=== PATIENT | male | born 1960 | race Caucasian/White ===

== ENCOUNTER 2016-11-22 13:31 | Inpatient (IN) | payer MEDICARE, MEDICAID ==
[~2016-11-22] VITALS: Ht 172.7 cm; Wt 83.5 kg
[~2016-11-22 13:31] MED LIST: FERR325T40 PO; FLUD25I IM; FLUP5 PO; LITH300C3 PO; LITH600 PO; METO50 PO
[2016-11-22 14:58] VITALS: BP 130/79
[2016-11-22] MEDS ORDERED: INFLUENZA VIRUS VACCINE QVS 2016-17 (3YR+)/PF 60 MCG/0.5 ML SYRINGE IM ONE (15:30)
[2016-11-22] MEDS ORDERED: PNEUMOCOCCAL VACCINE POLYVALENT 0.5 ML VIAL [PPSV23] IM ONE (15:45)
[2016-11-22] MEDS ORDERED: HALOPERIDOL 5 MG TABLET PO PRN (15:45)
[2016-11-22] MEDS ORDERED: METOPROLOL SUCCINATE 50 MG ER TABLET PO SCH (17:00)
[2016-11-22] MEDS: FluPHENAZine HCL 5 MG TABLET PO SCH (17:21)
[2016-11-22] MEDS: BENZTROPINE MESYLATE 1 MG TABLET PO SCH (17:21)
[2016-11-22] MEDS: FERROUS SULFATE 325 MG EC TABLET PO SCH (17:22)
[2016-11-22 17:49] VITALS: BP 129/80
[2016-11-22] MEDS: LITHIUM CARBONATE 600 MG CAPSULE PO SCH (20:25)
[2016-11-22] MEDS: MIRTAZAPINE 15 MG TABLET PO SCH (20:26)
[2016-11-23 06:06] VITALS: BP 125/90
[2016-11-23] MEDS: FERROUS SULFATE 325 MG EC TABLET PO SCH ×3 (06:53→16:56)
[2016-11-23] MEDS: FluPHENAZine HCL 5 MG TABLET PO SCH ×2 (08:38→16:56)
[2016-11-23] MEDS: LITHIUM CARBONATE 300 MG CAPSULE PO SCH (08:38)
[2016-11-23] MEDS: BENZTROPINE MESYLATE 1 MG TABLET PO SCH ×2 (08:38→16:56)
[2016-11-23] MEDS: METOPROLOL TARTRATE 50 MG TABLET PO SCH ×2 (08:38→16:56)
[2016-11-23] MEDS: LORazepam 2 MG TABLET PO PRN ×2 (08:40→16:01)
[2016-11-23] MEDS: NICOTINE 21 MG/24 HOUR PATCH TD SCH (08:40)
[2016-11-23 09:12] LABS: BASOPHILS % (AUTO) 0.2 % (0.0-2.0); EOSINOPHILS % (AUTO) 1.2 % (1.0-6.0); HEMATOCRIT 37.9 % (41-53); HEMOGLOBIN 12.5 g/dL (13.5-17.5); LYMPHOCYTES # (AUTO) 0.9 K/uL (1.0-4.8); LYMPHOCYTES % (AUTO) 14.4 % (22.0-44.0); MEAN CORPUSCULAR HEMOGLOBIN 29.2 pg (26.0-34.0); MEAN CORPUSCULAR HGB CONC 32.9 G/dL (31.0-37.0); MEAN CORPUSCULAR VOLUME 89 fL (80-100); MONOCYTES # (AUTO) 0.3 K/uL (0.1-1.0); MONOCYTES % (AUTO) 4.7 % (2.0-9.0); NEUTROPHILS # (AUTO) 5.1 K/uL (1.8-7.7); NEUTROPHILS % (AUTO) 79.5 % (40.0-70.0); PLATELET COUNT (AUTO) 187 K/uL (150-450); RED BLOOD CELL COUNT(AUTO) 4.27 MIL/uL (4.50-5.90); RED CELL DISTRIBUTION WIDTH 13.6 % (11.5-14.5); WHITE BLOOD COUNT (AUTO) 6.4 K/uL (4.5-11.0)
[2016-11-23 09:27] VITALS: BP 121/84
[2016-11-23 10:33] LABS: ALANINE AMINOTRANSFERASE 21 U/L (12-78); ALBUMIN 3.2 g/dL (3.4-5.0); ANION GAP 6 mmol/L (8-16); ASPARTATE AMINOTRANSFERASE 11 U/L (15-37); BILIRUBIN,TOTAL 0.2 mg/dL (0.1-1.0); CALCIUM, TOTAL 8.8 mg/dL (8.8-10.5); CARBON DIOXIDE 30 mmol/L (22-29); CHLORIDE 103 mmol/L (98-107); CREATININE 1.14 mg/dL (0.60-1.30); GLOMERULAR FILTR. RATE CALC > 60 mL/min (>60); SODIUM SERUM 139 mmol/L (136-145); TOTAL PROTEIN, SERUM 6.4 g/dL (6.4-8.2); UREA NITROGEN, BLOOD 12 mg/dL (7-18)
[2016-11-23 16:19] VITALS: BP 136/82
[2016-11-23] MEDS: LITHIUM CARBONATE 600 MG CAPSULE PO SCH (20:43)
[2016-11-23] MEDS: MIRTAZAPINE 15 MG TABLET PO SCH (20:43)
[2016-11-24 04:48] VITALS: BP 124/82
[2016-11-24] MEDS: FERROUS SULFATE 325 MG EC TABLET PO SCH ×3 (06:38→16:09)
[2016-11-24] MEDS ORDERED: FERROUS SULFATE 325 MG EC TABLET PO SCH (07:00)
[2016-11-24 08:34] LABS: CHOL/HDL RATIO 3.2 (4.2-7.3); THYROID STIMULATING HORMONE 1.6 uIU/mL (0.36-3.74)
[2016-11-24 08:57] VITALS: BP 122/80
[2016-11-24] MEDS: BENZTROPINE MESYLATE 1 MG TABLET PO SCH ×2 (09:04→16:10)
[2016-11-24] MEDS: LITHIUM CARBONATE 300 MG CAPSULE PO SCH (09:04)
[2016-11-24] MEDS: NICOTINE 21 MG/24 HOUR PATCH TD SCH (09:04)
[2016-11-24] MEDS: METOPROLOL TARTRATE 50 MG TABLET PO SCH ×2 (09:04→16:09)
[2016-11-24] MEDS: FluPHENAZine HCL 5 MG TABLET PO SCH ×2 (09:04→16:09)
[2016-11-24] MEDS: IBUPROFEN 400 MG TABLET PO PRN (09:36)
[2016-11-24] MEDS: LORazepam 2 MG TABLET PO PRN ×2 (11:46→17:11)
[2016-11-24 16:00] VITALS: BP 136/80
[2016-11-24] MEDS: LITHIUM CARBONATE 600 MG CAPSULE PO SCH (20:24)
[2016-11-24] MEDS: MIRTAZAPINE 15 MG TABLET PO SCH (20:24)
[2016-11-25] MEDS: IBUPROFEN 400 MG TABLET PO PRN ×2 (02:55→20:37)
[2016-11-25 03:00] VITALS: BP 136/87
[2016-11-25] MEDS: FERROUS SULFATE 325 MG EC TABLET PO SCH ×3 (06:46→16:37)
[2016-11-25] MEDS: LITHIUM CARBONATE 300 MG CAPSULE PO SCH (08:26)
[2016-11-25] MEDS: NICOTINE 21 MG/24 HOUR PATCH TD SCH (08:26)
[2016-11-25] MEDS: METOPROLOL TARTRATE 50 MG TABLET PO SCH ×2 (08:27→16:37)
[2016-11-25] MEDS: FluPHENAZine HCL 5 MG TABLET PO SCH ×2 (08:27→16:37)
[2016-11-25] MEDS: BENZTROPINE MESYLATE 1 MG TABLET PO SCH ×2 (08:27→16:37)
[2016-11-25 09:06] VITALS: BP 120/66
[2016-11-25 16:00] VITALS: BP 139/80
[2016-11-25 20:37] VITALS: BP 128/84
[2016-11-25] MEDS: MIRTAZAPINE 15 MG TABLET PO SCH (20:50)
[2016-11-25] MEDS: LITHIUM CARBONATE 600 MG CAPSULE PO SCH (20:50)
[2016-11-26 00:38] VITALS: BP 116/68
[2016-11-26] MEDS: FERROUS SULFATE 325 MG EC TABLET PO SCH ×3 (06:40→16:47)
[2016-11-26 08:18] VITALS: BP 113/60
[2016-11-26] MEDS: NICOTINE 21 MG/24 HOUR PATCH TD SCH (10:33)
[2016-11-26] MEDS: LITHIUM CARBONATE 300 MG CAPSULE PO SCH (10:33)
[2016-11-26] MEDS: METOPROLOL TARTRATE 50 MG TABLET PO SCH ×2 (10:33→16:47)
[2016-11-26] MEDS: BENZTROPINE MESYLATE 1 MG TABLET PO SCH ×2 (10:33→16:47)
[2016-11-26] MEDS: FluPHENAZine HCL 5 MG TABLET PO SCH ×2 (10:33→16:47)
[2016-11-26] MEDS: IBUPROFEN 400 MG TABLET PO PRN (13:08)
[2016-11-26 16:05] VITALS: BP 126/84
[2016-11-26] MEDS: MIRTAZAPINE 15 MG TABLET PO SCH (20:36)
[2016-11-26] MEDS: LITHIUM CARBONATE 600 MG CAPSULE PO SCH (20:36)
[2016-11-26] MEDS: LORazepam 2 MG TABLET PO PRN (22:30)
[2016-11-27] VITALS: BP 124/75
[2016-11-27] MEDS: ACETAMINOPHEN 325 MG TABLET PO PRN
[2016-11-27 00:44] VITALS: BP 124/75
[2016-11-27] MEDS: FERROUS SULFATE 325 MG EC TABLET PO SCH ×3 (06:37→16:34)
[2016-11-27] MEDS: LITHIUM CARBONATE 300 MG CAPSULE PO SCH (09:11)
[2016-11-27] MEDS: FluPHENAZine HCL 5 MG TABLET PO SCH ×2 (09:11→16:34)
[2016-11-27] MEDS: BENZTROPINE MESYLATE 1 MG TABLET PO SCH ×2 (09:11→16:34)
[2016-11-27] MEDS: METOPROLOL TARTRATE 50 MG TABLET PO SCH ×2 (09:11→16:34)
[2016-11-27] MEDS: NICOTINE 21 MG/24 HOUR PATCH TD SCH (09:11)
[2016-11-27 09:14] VITALS: BP 114/70
[2016-11-27 16:13] VITALS: BP 118/82
[2016-11-27 18:00] VITALS: BP 127/85
[2016-11-27] MEDS: IBUPROFEN 400 MG TABLET PO PRN (18:03)
[2016-11-27] MEDS: LITHIUM CARBONATE 600 MG CAPSULE PO SCH (20:59)
[2016-11-27] MEDS: MIRTAZAPINE 15 MG TABLET PO SCH (20:59)
[2016-11-28 03:21] VITALS: BP 121/65
[2016-11-28] MEDS: FERROUS SULFATE 325 MG EC TABLET PO SCH ×3 (07:15→16:35)
[2016-11-28 08:13] VITALS: BP 115/69
[2016-11-28] MEDS: FluPHENAZine HCL 5 MG TABLET PO SCH ×2 (09:01→16:35)
[2016-11-28] MEDS: BENZTROPINE MESYLATE 1 MG TABLET PO SCH ×2 (09:01→16:35)
[2016-11-28] MEDS: NICOTINE 21 MG/24 HOUR PATCH TD SCH (09:01)
[2016-11-28] MEDS: METOPROLOL TARTRATE 50 MG TABLET PO SCH ×2 (09:01→16:35)
[2016-11-28] MEDS: LITHIUM CARBONATE 300 MG CAPSULE PO SCH (09:01)
[2016-11-28] MEDS: FluPHENAZine DECANOATE 25 MG/ML IM SCH (09:02)
[2016-11-28] MEDS ORDERED: TUBERCULIN, PURIFIED PROTEIN DERIVATIVE 5 TU/0.1 ML SYG ID ONE (13:30)
[2016-11-28 16:45] VITALS: BP 120/84
[2016-11-28] MEDS: LITHIUM CARBONATE 600 MG CAPSULE PO SCH (20:39)
[2016-11-28] MEDS: MIRTAZAPINE 15 MG TABLET PO SCH (20:39)
[2016-11-29 00:42] VITALS: BP 110/68
[2016-11-29] MEDS: FERROUS SULFATE 325 MG EC TABLET PO SCH ×3 (06:38→16:57)
[2016-11-29] MEDS: FluPHENAZine HCL 5 MG TABLET PO SCH ×2 (09:19→16:12)
[2016-11-29] MEDS: METOPROLOL TARTRATE 50 MG TABLET PO SCH ×2 (09:19→16:12)
[2016-11-29] MEDS: LITHIUM CARBONATE 300 MG CAPSULE PO SCH (09:19)
[2016-11-29] MEDS: BENZTROPINE MESYLATE 1 MG TABLET PO SCH ×2 (09:19→16:12)
[2016-11-29] MEDS: LORazepam 2 MG TABLET PO PRN (09:21)
[2016-11-29] MEDS: NICOTINE 21 MG/24 HOUR PATCH TD SCH (09:21)
[2016-11-29 09:33] VITALS: BP 114/72
[2016-11-29] MEDS: IBUPROFEN 400 MG TABLET PO PRN (10:37)
[2016-11-29 16:17] VITALS: BP 115/79
[2016-11-29] MEDS: LITHIUM CARBONATE 600 MG CAPSULE PO SCH (20:38)
[2016-11-29] MEDS: MIRTAZAPINE 15 MG TABLET PO SCH (20:38)
[2016-11-30 00:35] VITALS: BP 112/68
[2016-11-30] MEDS: FERROUS SULFATE 325 MG EC TABLET PO SCH ×3 (06:03→16:12)
[2016-11-30] MEDS: LITHIUM CARBONATE 300 MG CAPSULE PO SCH (08:40)
[2016-11-30] MEDS: NICOTINE 21 MG/24 HOUR PATCH TD SCH (08:40)
[2016-11-30] MEDS: FluPHENAZine HCL 5 MG TABLET PO SCH ×2 (08:40→16:12)
[2016-11-30] MEDS: METOPROLOL TARTRATE 50 MG TABLET PO SCH ×2 (08:40→16:11)
[2016-11-30] MEDS: BENZTROPINE MESYLATE 1 MG TABLET PO SCH ×2 (08:40→16:11)
[2016-11-30 08:57] VITALS: BP 137/91
[2016-11-30 16:39] VITALS: BP 111/67
[2016-11-30] MEDS: LITHIUM CARBONATE 600 MG CAPSULE PO SCH (20:01)
[2016-11-30] MEDS: MIRTAZAPINE 15 MG TABLET PO SCH (20:01)
[2016-12-01] MEDS: FERROUS SULFATE 325 MG EC TABLET PO SCH ×3 (06:24→16:39)
[2016-12-01 07:04] VITALS: BP 122/77
[2016-12-01] MEDS: BENZTROPINE MESYLATE 1 MG TABLET PO SCH ×2 (08:42→16:38)
[2016-12-01] MEDS: NICOTINE 21 MG/24 HOUR PATCH TD SCH (08:42)
[2016-12-01] MEDS: LITHIUM CARBONATE 300 MG CAPSULE PO SCH (08:42)
[2016-12-01] MEDS: FluPHENAZine HCL 5 MG TABLET PO SCH ×2 (08:42→16:38)
[2016-12-01] MEDS: METOPROLOL TARTRATE 50 MG TABLET PO SCH ×2 (08:42→16:38)
[2016-12-01 09:05] VITALS: BP 123/70
[2016-12-01 16:15] VITALS: BP 142/76
[2016-12-01] MEDS: LITHIUM CARBONATE 600 MG CAPSULE PO SCH (20:41)
[2016-12-01] MEDS: MIRTAZAPINE 15 MG TABLET PO SCH (20:41)
[2016-12-02 00:27] VITALS: BP 127/62
[2016-12-02] MEDS: FERROUS SULFATE 325 MG EC TABLET PO SCH ×3 (06:41→16:38)
[2016-12-02] MEDS: BENZTROPINE MESYLATE 1 MG TABLET PO SCH ×2 (08:43→16:38)
[2016-12-02] MEDS: NICOTINE 21 MG/24 HOUR PATCH TD SCH (08:43)
[2016-12-02] MEDS: LITHIUM CARBONATE 300 MG CAPSULE PO SCH (08:44)
[2016-12-02] MEDS: FluPHENAZine HCL 5 MG TABLET PO SCH ×2 (08:44→16:37)
[2016-12-02] MEDS: METOPROLOL TARTRATE 50 MG TABLET PO SCH ×2 (08:44→16:38)
[2016-12-02] MEDS: LORazepam 2 MG TABLET PO PRN (09:04)
[2016-12-02 09:38] VITALS: BP 121/80
[2016-12-02 12:26] VITALS: BP 130/75
[2016-12-02] MEDS: IBUPROFEN 400 MG TABLET PO PRN (12:26)
[2016-12-02 16:28] VITALS: BP 132/80
[2016-12-02] MEDS: LITHIUM CARBONATE 600 MG CAPSULE PO SCH (20:33)
[2016-12-02] MEDS: MIRTAZAPINE 15 MG TABLET PO SCH (20:33)
[2016-12-03 01:06] VITALS: BP 118/82
[2016-12-03] MEDS: FERROUS SULFATE 325 MG EC TABLET PO SCH ×3 (06:17→16:26)
[2016-12-03 08:08] VITALS: BP 109/60
[2016-12-03] MEDS: NICOTINE 21 MG/24 HOUR PATCH TD SCH (09:18)
[2016-12-03] MEDS: LITHIUM CARBONATE 300 MG CAPSULE PO SCH (09:18)
[2016-12-03] MEDS: BENZTROPINE MESYLATE 1 MG TABLET PO SCH ×2 (09:18→16:26)
[2016-12-03] MEDS: FluPHENAZine HCL 5 MG TABLET PO SCH ×2 (09:19→16:26)
[2016-12-03] MEDS: METOPROLOL TARTRATE 50 MG TABLET PO SCH ×2 (09:19→16:27)
[2016-12-03 16:07] VITALS: BP 124/83
[2016-12-03] MEDS: LITHIUM CARBONATE 600 MG CAPSULE PO SCH (20:54)
[2016-12-03] MEDS: MIRTAZAPINE 15 MG TABLET PO SCH (20:54)
[2016-12-04 00:05] VITALS: BP 103/63
[2016-12-04] MEDS: FERROUS SULFATE 325 MG EC TABLET PO SCH ×3 (06:24→16:33)
[2016-12-04 08:14] VITALS: BP 120/83
[2016-12-04] MEDS: METOPROLOL TARTRATE 50 MG TABLET PO SCH ×2 (08:22→16:33)
[2016-12-04] MEDS: FluPHENAZine HCL 5 MG TABLET PO SCH ×2 (08:22→16:33)
[2016-12-04] MEDS: LITHIUM CARBONATE 300 MG CAPSULE PO SCH (08:22)
[2016-12-04] MEDS: BENZTROPINE MESYLATE 1 MG TABLET PO SCH ×2 (08:22→16:33)
[2016-12-04] MEDS: NICOTINE 21 MG/24 HOUR PATCH TD SCH (08:36)
[2016-12-04] MEDS: LORazepam 2 MG TABLET PO PRN ×2 (08:36→13:52)
[2016-12-04 14:21] VITALS: BP 116/78
[2016-12-04] MEDS: IBUPROFEN 400 MG TABLET PO PRN (14:21)
[2016-12-04 16:08] VITALS: BP 118/70
[2016-12-04] MEDS: LITHIUM CARBONATE 600 MG CAPSULE PO SCH (20:37)
[2016-12-04] MEDS: MIRTAZAPINE 15 MG TABLET PO SCH (20:37)
[2016-12-05 06:34] VITALS: BP 120/70
[2016-12-05] MEDS: FERROUS SULFATE 325 MG EC TABLET PO SCH ×3 (06:35→16:35)
[2016-12-05 08:07] VITALS: BP 107/67
[2016-12-05] MEDS: LITHIUM CARBONATE 300 MG CAPSULE PO SCH (09:04)
[2016-12-05] MEDS: METOPROLOL TARTRATE 50 MG TABLET PO SCH ×2 (09:04→16:35)
[2016-12-05] MEDS: BENZTROPINE MESYLATE 1 MG TABLET PO SCH ×2 (09:04→16:35)
[2016-12-05] MEDS: NICOTINE 21 MG/24 HOUR PATCH TD SCH (09:04)
[2016-12-05] MEDS: FluPHENAZine HCL 5 MG TABLET PO SCH ×2 (09:04→16:35)
[2016-12-05] MEDS: LORazepam 2 MG TABLET PO PRN (14:44)
[2016-12-05 16:20] VITALS: BP 122/79
[2016-12-05] MEDS: MIRTAZAPINE 15 MG TABLET PO SCH (20:39)
[2016-12-05] MEDS: LITHIUM CARBONATE 600 MG CAPSULE PO SCH (20:39)
[2016-12-06 05:50] VITALS: BP 113/62
[2016-12-06] MEDS: FERROUS SULFATE 325 MG EC TABLET PO SCH ×3 (06:44→16:31)
[2016-12-06] MEDS: LITHIUM CARBONATE 300 MG CAPSULE PO SCH (08:05)
[2016-12-06] MEDS: METOPROLOL TARTRATE 50 MG TABLET PO SCH ×2 (08:05→16:31)
[2016-12-06] MEDS: NICOTINE 21 MG/24 HOUR PATCH TD SCH (08:05)
[2016-12-06] MEDS: BENZTROPINE MESYLATE 1 MG TABLET PO SCH ×2 (08:05→16:31)
[2016-12-06 08:06] VITALS: BP 122/72
[2016-12-06] MEDS: FluPHENAZine HCL 5 MG TABLET PO SCH ×2 (08:06→16:31)
[2016-12-06 16:06] VITALS: BP 123/76
[2016-12-06] MEDS: MIRTAZAPINE 15 MG TABLET PO SCH (20:04)
[2016-12-06] MEDS: LITHIUM CARBONATE 600 MG CAPSULE PO SCH (20:05)
[2016-12-07 06:14] VITALS: BP 105/65
[2016-12-07] MEDS: FERROUS SULFATE 325 MG EC TABLET PO SCH ×3 (06:19→16:12)
[2016-12-07 08:35] VITALS: BP 117/70
[2016-12-07] MEDS: FluPHENAZine HCL 5 MG TABLET PO SCH ×2 (09:00→16:12)
[2016-12-07] MEDS: LITHIUM CARBONATE 300 MG CAPSULE PO SCH (09:00)
[2016-12-07] MEDS: BENZTROPINE MESYLATE 1 MG TABLET PO SCH ×2 (09:00→16:12)
[2016-12-07] MEDS: METOPROLOL TARTRATE 50 MG TABLET PO SCH ×2 (09:00→16:12)
[2016-12-07] MEDS: NICOTINE 21 MG/24 HOUR PATCH TD SCH (09:01)
[2016-12-07 16:14] VITALS: BP_SYST 140
[2016-12-07] MEDS: LITHIUM CARBONATE 600 MG CAPSULE PO SCH (20:06)
[2016-12-07] MEDS: MIRTAZAPINE 15 MG TABLET PO SCH (20:06)
[2016-12-08 00:57] VITALS: BP 102/62
[2016-12-08] MEDS: FERROUS SULFATE 325 MG EC TABLET PO SCH ×3 (06:50→16:13)
[2016-12-08 08:49] VITALS: BP 121/76
[2016-12-08] MEDS: METOPROLOL TARTRATE 50 MG TABLET PO SCH ×2 (09:11→16:13)
[2016-12-08] MEDS: BENZTROPINE MESYLATE 1 MG TABLET PO SCH ×2 (09:11→16:13)
[2016-12-08] MEDS: LITHIUM CARBONATE 300 MG CAPSULE PO SCH (09:11)
[2016-12-08] MEDS: FluPHENAZine HCL 5 MG TABLET PO SCH ×2 (09:11→16:13)
[2016-12-08] MEDS: NICOTINE 21 MG/24 HOUR PATCH TD SCH (09:12)
[2016-12-08] MEDS: LORazepam 2 MG TABLET PO PRN (09:23)
[2016-12-08 10:57] VITALS: BP 118/80
[2016-12-08] MEDS: IBUPROFEN 400 MG TABLET PO PRN (10:57)
[2016-12-08 16:13] VITALS: BP 128/80
[2016-12-08] MEDS: MIRTAZAPINE 15 MG TABLET PO SCH (20:37)
[2016-12-08] MEDS: LITHIUM CARBONATE 600 MG CAPSULE PO SCH (20:37)
[2016-12-09 05:47] VITALS: BP 101/60
[2016-12-09] MEDS: FERROUS SULFATE 325 MG EC TABLET PO SCH ×3 (06:33→17:00)
[2016-12-09 08:08] VITALS: BP 108/62
[2016-12-09] MEDS: BENZTROPINE MESYLATE 1 MG TABLET PO SCH ×2 (09:10→17:49)
[2016-12-09] MEDS: METOPROLOL TARTRATE 50 MG TABLET PO SCH ×2 (09:10→17:49)
[2016-12-09] MEDS: LITHIUM CARBONATE 300 MG CAPSULE PO SCH (09:10)
[2016-12-09] MEDS: FluPHENAZine HCL 5 MG TABLET PO SCH ×2 (09:10→17:49)
[2016-12-09] MEDS: NICOTINE 21 MG/24 HOUR PATCH TD SCH (09:11)
[2016-12-09] MEDS: LORazepam 2 MG TABLET PO PRN (09:23)
[2016-12-09 09:35] VITALS: BP 112/60
[2016-12-09] MEDS: IBUPROFEN 400 MG TABLET PO PRN (09:35)
[2016-12-09 16:30] VITALS: BP 139/83
[2016-12-09] MEDS: LITHIUM CARBONATE 600 MG CAPSULE PO SCH (21:03)
[2016-12-09] MEDS: MIRTAZAPINE 15 MG TABLET PO SCH (21:03)
[2016-12-10] MEDS: FERROUS SULFATE 325 MG EC TABLET PO SCH ×3 (06:26→16:36)
[2016-12-10 06:27] VITALS: BP 104/62
[2016-12-10 08:13] VITALS: BP 104/63
[2016-12-10] MEDS: METOPROLOL TARTRATE 50 MG TABLET PO SCH ×2 (09:07→16:36)
[2016-12-10] MEDS: LITHIUM CARBONATE 300 MG CAPSULE PO SCH (09:07)
[2016-12-10] MEDS: FluPHENAZine HCL 5 MG TABLET PO SCH ×2 (09:07→16:36)
[2016-12-10] MEDS: NICOTINE 21 MG/24 HOUR PATCH TD SCH (09:07)
[2016-12-10] MEDS: BENZTROPINE MESYLATE 1 MG TABLET PO SCH ×2 (09:07→16:36)
[2016-12-10 16:09] VITALS: BP 116/74
[2016-12-10] MEDS: LITHIUM CARBONATE 600 MG CAPSULE PO SCH (20:29)
[2016-12-10] MEDS: MIRTAZAPINE 15 MG TABLET PO SCH (20:29)
[2016-12-11 00:43] VITALS: BP 107/67
[2016-12-11] MEDS: FERROUS SULFATE 325 MG EC TABLET PO SCH ×3 (06:19→16:19)
[2016-12-11 08:19] VITALS: BP 104/63
[2016-12-11] MEDS: METOPROLOL TARTRATE 50 MG TABLET PO SCH ×2 (09:00→16:19)
[2016-12-11] MEDS: FluPHENAZine HCL 5 MG TABLET PO SCH ×2 (09:25→16:19)
[2016-12-11] MEDS: BENZTROPINE MESYLATE 1 MG TABLET PO SCH ×2 (09:25→16:19)
[2016-12-11] MEDS: NICOTINE 21 MG/24 HOUR PATCH TD SCH (09:25)
[2016-12-11] MEDS: LITHIUM CARBONATE 300 MG CAPSULE PO SCH (09:25)
[2016-12-11 09:30] VITALS: BP 105/79
[2016-12-11 12:14] VITALS: BP 108/78
[2016-12-11] MEDS: IBUPROFEN 400 MG TABLET PO PRN (12:14)
[2016-12-11 16:02] VITALS: BP 135/86
[2016-12-11] MEDS: LORazepam 2 MG TABLET PO PRN (19:09)
[2016-12-11] MEDS: LITHIUM CARBONATE 600 MG CAPSULE PO SCH (20:49)
[2016-12-11] MEDS: MIRTAZAPINE 15 MG TABLET PO SCH (20:49)
[2016-12-12 00:42] VITALS: BP 101/78
[2016-12-12] MEDS: FERROUS SULFATE 325 MG EC TABLET PO SCH ×3 (06:47→16:44)
[2016-12-12 08:44] VITALS: BP 114/71
[2016-12-12] MEDS: BENZTROPINE MESYLATE 1 MG TABLET PO SCH ×2 (09:40→16:44)
[2016-12-12] MEDS: LITHIUM CARBONATE 300 MG CAPSULE PO SCH (09:40)
[2016-12-12] MEDS: NICOTINE 21 MG/24 HOUR PATCH TD SCH (09:40)
[2016-12-12] MEDS: FluPHENAZine HCL 5 MG TABLET PO SCH ×2 (09:40→16:44)
[2016-12-12] MEDS: METOPROLOL TARTRATE 50 MG TABLET PO SCH ×2 (09:41→16:44)
[2016-12-12] MEDS: FluPHENAZine DECANOATE 25 MG/ML IM SCH (13:02)
[2016-12-12 16:11] VITALS: BP 142/83
[2016-12-12] MEDS: LITHIUM CARBONATE 600 MG CAPSULE PO SCH (20:32)
[2016-12-12] MEDS: MIRTAZAPINE 15 MG TABLET PO SCH (20:32)
[2016-12-13 00:08] VITALS: BP 107/62
[2016-12-13] MEDS: FERROUS SULFATE 325 MG EC TABLET PO SCH ×3 (07:07→16:35)
[2016-12-13 08:31] VITALS: BP 126/71
[2016-12-13] MEDS: NICOTINE 21 MG/24 HOUR PATCH TD SCH (08:36)
[2016-12-13] MEDS: FluPHENAZine HCL 5 MG TABLET PO SCH ×2 (08:36→16:35)
[2016-12-13] MEDS: LITHIUM CARBONATE 300 MG CAPSULE PO SCH (08:36)
[2016-12-13] MEDS: BENZTROPINE MESYLATE 1 MG TABLET PO SCH ×2 (08:36→16:35)
[2016-12-13] MEDS: METOPROLOL TARTRATE 50 MG TABLET PO SCH ×2 (08:36→16:35)
[2016-12-13] MEDS: LORazepam 2 MG TABLET PO PRN (13:52)
[2016-12-13 16:39] VITALS: BP 124/89
[2016-12-13] MEDS: LITHIUM CARBONATE 600 MG CAPSULE PO SCH (20:42)
[2016-12-13] MEDS: MIRTAZAPINE 15 MG TABLET PO SCH (20:42)
[2016-12-14] MEDS: FERROUS SULFATE 325 MG EC TABLET PO SCH ×3 (06:04→16:19)
[2016-12-14 06:05] VITALS: BP 109/69
[2016-12-14 08:18] VITALS: BP 102/62
[2016-12-14] MEDS: FluPHENAZine HCL 5 MG TABLET PO SCH ×2 (10:14→16:19)
[2016-12-14] MEDS: LITHIUM CARBONATE 300 MG CAPSULE PO SCH (10:14)
[2016-12-14] MEDS: NICOTINE 21 MG/24 HOUR PATCH TD SCH (10:14)
[2016-12-14] MEDS: BENZTROPINE MESYLATE 1 MG TABLET PO SCH ×2 (10:14→16:19)
[2016-12-14] MEDS: METOPROLOL TARTRATE 50 MG TABLET PO SCH ×2 (10:14→16:19)
[2016-12-14 16:09] VITALS: BP 115/73
[2016-12-14 17:55] VITALS: BP 118/78
[2016-12-14] MEDS: IBUPROFEN 400 MG TABLET PO PRN (17:56)
[2016-12-14] MEDS: MIRTAZAPINE 15 MG TABLET PO SCH (20:23)
[2016-12-14] MEDS: LITHIUM CARBONATE 600 MG CAPSULE PO SCH (20:23)
[2016-12-15] MEDS: FERROUS SULFATE 325 MG EC TABLET PO SCH ×3 (06:51→16:06)
[2016-12-15 06:56] VITALS: BP 102/65
[2016-12-15 08:24] VITALS: BP 121/66
[2016-12-15] MEDS: FluPHENAZine HCL 5 MG TABLET PO SCH ×2 (09:13→16:06)
[2016-12-15] MEDS: BENZTROPINE MESYLATE 1 MG TABLET PO SCH ×2 (09:13→16:06)
[2016-12-15] MEDS: METOPROLOL TARTRATE 50 MG TABLET PO SCH ×2 (09:13→16:06)
[2016-12-15] MEDS: LITHIUM CARBONATE 300 MG CAPSULE PO SCH (09:13)
[2016-12-15] MEDS: NICOTINE 21 MG/24 HOUR PATCH TD SCH (09:13)
[2016-12-15 16:19] VITALS: BP 120/68
[2016-12-15] MEDS: MIRTAZAPINE 15 MG TABLET PO SCH (20:07)
[2016-12-15] MEDS: LITHIUM CARBONATE 600 MG CAPSULE PO SCH (20:07)
[2016-12-16 06:09] VITALS: BP 113/70
[2016-12-16] MEDS: FERROUS SULFATE 325 MG EC TABLET PO SCH ×3 (06:56→16:45)
[2016-12-16 08:32] VITALS: BP 110/72
[2016-12-16] MEDS: BENZTROPINE MESYLATE 1 MG TABLET PO SCH ×2 (08:46→16:45)
[2016-12-16] MEDS: METOPROLOL TARTRATE 50 MG TABLET PO SCH ×2 (08:46→16:45)
[2016-12-16] MEDS: FluPHENAZine HCL 5 MG TABLET PO SCH ×2 (08:46→16:45)
[2016-12-16] MEDS: NICOTINE 21 MG/24 HOUR PATCH TD SCH (08:46)
[2016-12-16] MEDS: LITHIUM CARBONATE 300 MG CAPSULE PO SCH (08:46)
[2016-12-16 16:20] VITALS: BP 127/86
[2016-12-16] MEDS: LITHIUM CARBONATE 600 MG CAPSULE PO SCH (20:41)
[2016-12-16] MEDS: MIRTAZAPINE 15 MG TABLET PO SCH (20:41)
[2016-12-17 03:28] VITALS: BP 101/62
[2016-12-17] MEDS: FERROUS SULFATE 325 MG EC TABLET PO SCH ×3 (06:38→17:05)
[2016-12-17 08:22] VITALS: BP 123/77
[2016-12-17] MEDS: LITHIUM CARBONATE 300 MG CAPSULE PO SCH (08:39)
[2016-12-17] MEDS: METOPROLOL TARTRATE 50 MG TABLET PO SCH ×2 (08:39→17:05)
[2016-12-17] MEDS: FluPHENAZine HCL 5 MG TABLET PO SCH ×2 (08:39→17:05)
[2016-12-17] MEDS: BENZTROPINE MESYLATE 1 MG TABLET PO SCH ×2 (08:39→17:05)
[2016-12-17] MEDS: NICOTINE 21 MG/24 HOUR PATCH TD SCH (08:40)
[2016-12-17 16:10] VITALS: BP 121/64
[2016-12-17] MEDS: LITHIUM CARBONATE 600 MG CAPSULE PO SCH (20:38)
[2016-12-17] MEDS: MIRTAZAPINE 15 MG TABLET PO SCH (20:38)
[2016-12-18 00:20] VITALS: BP 100/65
[2016-12-18] MEDS: FERROUS SULFATE 325 MG EC TABLET PO SCH ×3 (06:23→16:39)
[2016-12-18] MEDS: METOPROLOL TARTRATE 50 MG TABLET PO SCH ×2 (09:00→16:39)
[2016-12-18] MEDS: LITHIUM CARBONATE 300 MG CAPSULE PO SCH (09:03)
[2016-12-18] MEDS: NICOTINE 21 MG/24 HOUR PATCH TD SCH (09:04)
[2016-12-18] MEDS: FluPHENAZine HCL 5 MG TABLET PO SCH ×2 (09:04→16:39)
[2016-12-18] MEDS: BENZTROPINE MESYLATE 1 MG TABLET PO SCH ×2 (09:04→16:39)
[2016-12-18 09:05] VITALS: BP 102/63
[2016-12-18 16:12] VITALS: BP 149/88
[2016-12-18] MEDS: IBUPROFEN 400 MG TABLET PO PRN (20:02)
[2016-12-18 20:07] VITALS: BP 119/75
[2016-12-18] MEDS: LITHIUM CARBONATE 600 MG CAPSULE PO SCH (20:34)
[2016-12-18] MEDS: MIRTAZAPINE 15 MG TABLET PO SCH (20:34)
[2016-12-18] MEDS: ZOLPIDEM TARTRATE 10 MG TABLET PO PRN (22:45)
[2016-12-19 05:53] VITALS: BP 117/61
[2016-12-19] MEDS: FERROUS SULFATE 325 MG EC TABLET PO SCH ×3 (06:44→16:35)
[2016-12-19 08:35] VITALS: BP 110/65
[2016-12-19] MEDS: FluPHENAZine HCL 5 MG TABLET PO SCH ×2 (09:43→16:35)
[2016-12-19] MEDS: METOPROLOL TARTRATE 50 MG TABLET PO SCH ×2 (09:43→16:35)
[2016-12-19] MEDS: LITHIUM CARBONATE 300 MG CAPSULE PO SCH (09:43)
[2016-12-19] MEDS: NICOTINE 21 MG/24 HOUR PATCH TD SCH (09:44)
[2016-12-19] MEDS: BENZTROPINE MESYLATE 1 MG TABLET PO SCH ×2 (09:44→16:35)
[2016-12-19 12:18] VITALS: BP 116/68
[2016-12-19] MEDS: IBUPROFEN 400 MG TABLET PO PRN (12:18)
[2016-12-19 16:12] VITALS: BP 136/84
[2016-12-19] MEDS: LITHIUM CARBONATE 600 MG CAPSULE PO SCH (21:03)
[2016-12-19] MEDS: MIRTAZAPINE 15 MG TABLET PO SCH (21:03)
[2016-12-20 01:40] VITALS: BP 121/84
[2016-12-20] MEDS: LORazepam 2 MG TABLET PO PRN (01:48)
[2016-12-20] MEDS: FERROUS SULFATE 325 MG EC TABLET PO SCH ×3 (07:27→17:11)
[2016-12-20 08:35] VITALS: BP 121/78
[2016-12-20] MEDS: METOPROLOL TARTRATE 50 MG TABLET PO SCH ×2 (09:21→17:11)
[2016-12-20] MEDS: FluPHENAZine HCL 5 MG TABLET PO SCH ×2 (09:21→17:11)
[2016-12-20] MEDS: NICOTINE 21 MG/24 HOUR PATCH TD SCH (09:21)
[2016-12-20] MEDS: LITHIUM CARBONATE 300 MG CAPSULE PO SCH (09:21)
[2016-12-20] MEDS: BENZTROPINE MESYLATE 1 MG TABLET PO SCH ×2 (09:27→17:12)
[2016-12-20] MEDS: MAGNESIUM HYDROXIDE SUSPENSION 30 ML UDCUP PO PRN ×2 (11:34→12:28)
[2016-12-20 16:08] VITALS: BP 118/71
[2016-12-20] MEDS: IBUPROFEN 400 MG TABLET PO PRN (16:37)
[2016-12-20] MEDS: LITHIUM CARBONATE 600 MG CAPSULE PO SCH (20:17)
[2016-12-20] MEDS: MIRTAZAPINE 15 MG TABLET PO SCH (20:17)
[2016-12-21 06:58] VITALS: BP 116/70
[2016-12-21] MEDS: FERROUS SULFATE 325 MG EC TABLET PO SCH ×3 (07:00→16:13)
[2016-12-21 08:05] VITALS: BP 108/77
[2016-12-21] MEDS: LITHIUM CARBONATE 300 MG CAPSULE PO SCH (08:39)
[2016-12-21] MEDS: FluPHENAZine HCL 5 MG TABLET PO SCH ×2 (08:39→16:13)
[2016-12-21] MEDS: METOPROLOL TARTRATE 50 MG TABLET PO SCH ×2 (08:39→16:13)
[2016-12-21] MEDS: BENZTROPINE MESYLATE 1 MG TABLET PO SCH ×2 (08:40→16:13)
[2016-12-21] MEDS: NICOTINE 21 MG/24 HOUR PATCH TD SCH (08:40)
[2016-12-21 16:13] VITALS: BP 120/67
[2016-12-21] MEDS: MIRTAZAPINE 15 MG TABLET PO SCH (20:09)
[2016-12-21] MEDS: LITHIUM CARBONATE 600 MG CAPSULE PO SCH (20:09)
[2016-12-22 00:07] VITALS: BP 104/66
[2016-12-22] MEDS: FERROUS SULFATE 325 MG EC TABLET PO SCH ×3 (06:51→16:38)
[2016-12-22 08:10] VITALS: BP 117/76
[2016-12-22] MEDS: FluPHENAZine HCL 5 MG TABLET PO SCH ×2 (09:23→16:38)
[2016-12-22] MEDS: METOPROLOL TARTRATE 50 MG TABLET PO SCH ×2 (09:23→16:38)
[2016-12-22] MEDS: NICOTINE 21 MG/24 HOUR PATCH TD SCH (09:23)
[2016-12-22] MEDS: BENZTROPINE MESYLATE 1 MG TABLET PO SCH ×2 (09:23→16:38)
[2016-12-22] MEDS: LITHIUM CARBONATE 300 MG CAPSULE PO SCH (09:23)
[2016-12-22] MEDS: MAGNESIUM HYDROXIDE SUSPENSION 30 ML UDCUP PO PRN (12:16)
[2016-12-22 16:08] VITALS: BP 119/74
[2016-12-22] MEDS: LITHIUM CARBONATE 600 MG CAPSULE PO SCH (20:33)
[2016-12-22] MEDS: MIRTAZAPINE 15 MG TABLET PO SCH (20:33)
[2016-12-23] VITALS: BP 102/69
[2016-12-23] MEDS: IBUPROFEN 400 MG TABLET PO PRN (06:05)
[2016-12-23] MEDS: FERROUS SULFATE 325 MG EC TABLET PO SCH ×3 (06:05→16:42)
[2016-12-23 08:02] VITALS: BP 106/70
[2016-12-23] MEDS: NICOTINE 21 MG/24 HOUR PATCH TD SCH (09:00)
[2016-12-23] MEDS: FluPHENAZine HCL 5 MG TABLET PO SCH ×2 (09:20→16:42)
[2016-12-23] MEDS: BENZTROPINE MESYLATE 1 MG TABLET PO SCH ×2 (09:20→16:42)
[2016-12-23] MEDS: METOPROLOL TARTRATE 50 MG TABLET PO SCH ×2 (09:20→16:42)
[2016-12-23] MEDS: LITHIUM CARBONATE 300 MG CAPSULE PO SCH (09:20)
[2016-12-23 16:13] VITALS: BP 138/81
[2016-12-23] MEDS: LITHIUM CARBONATE 600 MG CAPSULE PO SCH (20:40)
[2016-12-23] MEDS: MIRTAZAPINE 15 MG TABLET PO SCH (20:40)
[2016-12-24 00:30] VITALS: BP 107/73
[2016-12-24] MEDS: FERROUS SULFATE 325 MG EC TABLET PO SCH ×3 (06:47→16:37)
[2016-12-24 08:26] VITALS: BP 121/58
[2016-12-24] MEDS: LITHIUM CARBONATE 300 MG CAPSULE PO SCH (09:19)
[2016-12-24] MEDS: BENZTROPINE MESYLATE 1 MG TABLET PO SCH ×2 (09:20→16:37)
[2016-12-24] MEDS: NICOTINE 21 MG/24 HOUR PATCH TD SCH (09:20)
[2016-12-24] MEDS: FluPHENAZine HCL 5 MG TABLET PO SCH ×2 (09:20→16:37)
[2016-12-24] MEDS: METOPROLOL TARTRATE 50 MG TABLET PO SCH ×2 (09:20→16:37)
[2016-12-24 10:46] VITALS: BP 123/60
[2016-12-24] MEDS: ACETAMINOPHEN 325 MG TABLET PO PRN (10:48)
[2016-12-24 16:50] VITALS: BP 122/74
[2016-12-24 18:45] VITALS: BP 119/68
[2016-12-24] MEDS: IBUPROFEN 400 MG TABLET PO PRN (18:45)
[2016-12-24] MEDS: LITHIUM CARBONATE 600 MG CAPSULE PO SCH (20:39)
[2016-12-24] MEDS: MIRTAZAPINE 15 MG TABLET PO SCH (20:40)
[2016-12-25 04:57] VITALS: BP 121/73
[2016-12-25] MEDS: FERROUS SULFATE 325 MG EC TABLET PO SCH ×3 (06:57→16:36)
[2016-12-25] MEDS: FluPHENAZine HCL 5 MG TABLET PO SCH ×2 (08:16→16:36)
[2016-12-25] MEDS: METOPROLOL TARTRATE 50 MG TABLET PO SCH ×2 (08:16→16:36)
[2016-12-25] MEDS: LITHIUM CARBONATE 300 MG CAPSULE PO SCH (08:16)
[2016-12-25] MEDS: BENZTROPINE MESYLATE 1 MG TABLET PO SCH ×2 (08:16→16:36)
[2016-12-25] MEDS: NICOTINE 21 MG/24 HOUR PATCH TD SCH (08:18)
[2016-12-25 08:28] VITALS: BP 126/96
[2016-12-25] MEDS: MAGNESIUM HYDROXIDE SUSPENSION 30 ML UDCUP PO PRN (09:04)
[2016-12-25 10:00] VITALS: BP 118/69
[2016-12-25 16:00] VITALS: BP 125/72
[2016-12-25] MEDS: MIRTAZAPINE 15 MG TABLET PO SCH (20:37)
[2016-12-25] MEDS: LITHIUM CARBONATE 600 MG CAPSULE PO SCH (20:37)
[2016-12-26 02:45] VITALS: BP 111/79
[2016-12-26] MEDS: FERROUS SULFATE 325 MG EC TABLET PO SCH ×3 (06:24→16:39)
[2016-12-26 08:17] VITALS: BP 122/80
[2016-12-26] MEDS: LITHIUM CARBONATE 300 MG CAPSULE PO SCH (09:11)
[2016-12-26] MEDS: NICOTINE 21 MG/24 HOUR PATCH TD SCH (09:11)
[2016-12-26] MEDS: FluPHENAZine HCL 5 MG TABLET PO SCH ×2 (09:11→16:39)
[2016-12-26] MEDS: BENZTROPINE MESYLATE 1 MG TABLET PO SCH ×2 (09:11→16:39)
[2016-12-26] MEDS: METOPROLOL TARTRATE 50 MG TABLET PO SCH ×2 (09:11→16:39)
[2016-12-26] MEDS: FluPHENAZine DECANOATE 25 MG/ML IM SCH (09:53)
[2016-12-26 16:11] VITALS: BP 144/79
[2016-12-26] MEDS: LITHIUM CARBONATE 600 MG CAPSULE PO SCH (20:37)
[2016-12-26] MEDS: MIRTAZAPINE 15 MG TABLET PO SCH (20:37)
[2016-12-27 00:32] VITALS: BP 101/64
[2016-12-27] MEDS: FERROUS SULFATE 325 MG EC TABLET PO SCH ×3 (06:10→16:35)
[2016-12-27 08:06] VITALS: BP 113/68
[2016-12-27] MEDS: NICOTINE 21 MG/24 HOUR PATCH TD SCH (09:14)
[2016-12-27] MEDS: BENZTROPINE MESYLATE 1 MG TABLET PO SCH ×2 (09:14→16:34)
[2016-12-27] MEDS: METOPROLOL TARTRATE 50 MG TABLET PO SCH ×2 (09:14→16:35)
[2016-12-27] MEDS: FluPHENAZine HCL 5 MG TABLET PO SCH ×2 (09:14→16:34)
[2016-12-27] MEDS: LITHIUM CARBONATE 300 MG CAPSULE PO SCH (09:14)
[2016-12-27 16:08] VITALS: BP 124/80
[2016-12-27] MEDS: LITHIUM CARBONATE 600 MG CAPSULE PO SCH (20:34)
[2016-12-27] MEDS: MIRTAZAPINE 15 MG TABLET PO SCH (20:34)
[2016-12-28 00:36] VITALS: BP 109/64
[2016-12-28] MEDS: FERROUS SULFATE 325 MG EC TABLET PO SCH ×3 (06:45→16:59)
[2016-12-28 08:08] VITALS: BP 106/65
[2016-12-28] MEDS: FluPHENAZine HCL 5 MG TABLET PO SCH ×2 (10:17→16:07)
[2016-12-28] MEDS: LITHIUM CARBONATE 300 MG CAPSULE PO SCH (10:18)
[2016-12-28] MEDS: METOPROLOL TARTRATE 50 MG TABLET PO SCH ×2 (10:18→16:07)
[2016-12-28] MEDS: NICOTINE 21 MG/24 HOUR PATCH TD SCH (10:18)
[2016-12-28] MEDS: BENZTROPINE MESYLATE 1 MG TABLET PO SCH ×2 (10:18→16:07)
[2016-12-28 16:08] VITALS: BP 122/81
[2016-12-28] MEDS: MIRTAZAPINE 15 MG TABLET PO SCH (20:07)
[2016-12-28] MEDS: LITHIUM CARBONATE 600 MG CAPSULE PO SCH (20:07)
[2016-12-29 04:20] VITALS: BP 123/71
[2016-12-29] MEDS: FERROUS SULFATE 325 MG EC TABLET PO SCH ×3 (06:36→17:11)
[2016-12-29] MEDS: METOPROLOL TARTRATE 50 MG TABLET PO SCH ×2 (08:26→17:11)
[2016-12-29] MEDS: FluPHENAZine HCL 5 MG TABLET PO SCH ×2 (08:26→17:11)
[2016-12-29] MEDS: BENZTROPINE MESYLATE 1 MG TABLET PO SCH ×2 (08:26→17:11)
[2016-12-29] MEDS: LITHIUM CARBONATE 300 MG CAPSULE PO SCH (08:26)
[2016-12-29] MEDS: NICOTINE 21 MG/24 HOUR PATCH TD SCH (08:26)
[2016-12-29 08:33] VITALS: BP 126/86
[2016-12-29 16:12] VITALS: BP 125/85
[2016-12-29] MEDS: LITHIUM CARBONATE 600 MG CAPSULE PO SCH (20:11)
[2016-12-29] MEDS: MIRTAZAPINE 15 MG TABLET PO SCH (20:11)
[2016-12-29] MEDS: ZOLPIDEM TARTRATE 10 MG TABLET PO PRN (20:46)
[2016-12-30 06:30] VITALS: BP 112/79
[2016-12-30] MEDS: FERROUS SULFATE 325 MG EC TABLET PO SCH ×3 (06:37→16:34)
[2016-12-30] MEDS: BENZTROPINE MESYLATE 1 MG TABLET PO SCH ×2 (08:05→16:34)
[2016-12-30] MEDS: FluPHENAZine HCL 5 MG TABLET PO SCH ×2 (08:05→16:34)
[2016-12-30] MEDS: LITHIUM CARBONATE 300 MG CAPSULE PO SCH (08:05)
[2016-12-30] MEDS: NICOTINE 21 MG/24 HOUR PATCH TD SCH (08:05)
[2016-12-30] MEDS: METOPROLOL TARTRATE 50 MG TABLET PO SCH ×2 (08:06→16:34)
[2016-12-30 08:27] VITALS: BP 119/85
[2016-12-30 16:00] VITALS: BP 140/90
[2016-12-30] MEDS: MIRTAZAPINE 15 MG TABLET PO SCH (20:36)
[2016-12-30] MEDS: LITHIUM CARBONATE 600 MG CAPSULE PO SCH (20:36)
[2016-12-31 01:18] VITALS: BP 110/60
[2016-12-31] MEDS: FERROUS SULFATE 325 MG EC TABLET PO SCH ×3 (07:06→16:36)
[2016-12-31 08:36] VITALS: BP 115/72
[2016-12-31] MEDS: BENZTROPINE MESYLATE 1 MG TABLET PO SCH ×2 (09:06→16:36)
[2016-12-31] MEDS: FluPHENAZine HCL 5 MG TABLET PO SCH ×2 (09:06→16:36)
[2016-12-31] MEDS: NICOTINE 21 MG/24 HOUR PATCH TD SCH (09:06)
[2016-12-31] MEDS: LITHIUM CARBONATE 300 MG CAPSULE PO SCH (09:07)
[2016-12-31] MEDS: METOPROLOL TARTRATE 50 MG TABLET PO SCH ×2 (09:07→16:36)
[2016-12-31 16:19] VITALS: BP 117/98
[2016-12-31] MEDS: LITHIUM CARBONATE 600 MG CAPSULE PO SCH (20:39)
[2016-12-31] MEDS: MIRTAZAPINE 15 MG TABLET PO SCH (20:39)
[2017-01-01 01:16] VITALS: BP 106/70
[2017-01-01] MEDS: FERROUS SULFATE 325 MG EC TABLET PO SCH ×3 (06:41→18:01)
[2017-01-01 08:10] VITALS: BP 114/66
[2017-01-01] MEDS: BENZTROPINE MESYLATE 1 MG TABLET PO SCH ×2 (08:18→18:01)
[2017-01-01] MEDS: FluPHENAZine HCL 5 MG TABLET PO SCH ×2 (08:18→18:01)
[2017-01-01] MEDS: NICOTINE 21 MG/24 HOUR PATCH TD SCH (08:18)
[2017-01-01] MEDS: METOPROLOL TARTRATE 50 MG TABLET PO SCH ×2 (08:19→18:01)
[2017-01-01] MEDS: LITHIUM CARBONATE 300 MG CAPSULE PO SCH (08:21)
[2017-01-01 16:30] VITALS: BP 118/65
[2017-01-01] MEDS: LITHIUM CARBONATE 600 MG CAPSULE PO SCH (20:37)
[2017-01-01] MEDS: MIRTAZAPINE 15 MG TABLET PO SCH (20:37)
[2017-01-02 00:01] VITALS: BP 108/73
[2017-01-02] MEDS: FERROUS SULFATE 325 MG EC TABLET PO SCH ×3 (07:04→16:37)
[2017-01-02] MEDS: BENZTROPINE MESYLATE 1 MG TABLET PO SCH ×2 (08:20→16:37)
[2017-01-02] MEDS: METOPROLOL TARTRATE 50 MG TABLET PO SCH ×2 (08:20→16:37)
[2017-01-02] MEDS: FluPHENAZine HCL 5 MG TABLET PO SCH ×2 (08:20→16:37)
[2017-01-02] MEDS: LITHIUM CARBONATE 300 MG CAPSULE PO SCH (08:20)
[2017-01-02] MEDS: NICOTINE 21 MG/24 HOUR PATCH TD SCH (08:24)
[2017-01-02 09:04] VITALS: BP 121/76
[2017-01-02 16:08] VITALS: BP 130/80
[2017-01-02] MEDS: MIRTAZAPINE 15 MG TABLET PO SCH (20:41)
[2017-01-02] MEDS: LITHIUM CARBONATE 600 MG CAPSULE PO SCH (20:43)
[2017-01-03] MEDS: FERROUS SULFATE 325 MG EC TABLET PO SCH ×3 (06:44→17:07)
[2017-01-03 06:52] VITALS: BP 130/87
[2017-01-03 09:06] VITALS: BP 119/74
[2017-01-03] MEDS: LITHIUM CARBONATE 300 MG CAPSULE PO SCH (09:28)
[2017-01-03] MEDS: FluPHENAZine HCL 5 MG TABLET PO SCH ×2 (09:28→17:06)
[2017-01-03] MEDS: METOPROLOL TARTRATE 50 MG TABLET PO SCH ×2 (09:28→17:07)
[2017-01-03] MEDS: BENZTROPINE MESYLATE 1 MG TABLET PO SCH ×2 (09:29→17:07)
[2017-01-03] MEDS: NICOTINE 21 MG/24 HOUR PATCH TD SCH (09:29)
[2017-01-03 16:22] VITALS: BP 119/69
[2017-01-03] MEDS: MIRTAZAPINE 15 MG TABLET PO SCH (20:17)
[2017-01-03] MEDS: LITHIUM CARBONATE 600 MG CAPSULE PO SCH (20:17)
[2017-01-04 02:08] VITALS: BP 122/66
[2017-01-04] MEDS: FERROUS SULFATE 325 MG EC TABLET PO SCH ×3 (06:25→17:02)
[2017-01-04 08:40] VITALS: BP 120/88
[2017-01-04] MEDS: FluPHENAZine HCL 5 MG TABLET PO SCH ×2 (09:37→17:01)
[2017-01-04] MEDS: BENZTROPINE MESYLATE 1 MG TABLET PO SCH ×2 (09:37→17:01)
[2017-01-04] MEDS: METOPROLOL TARTRATE 50 MG TABLET PO SCH ×2 (09:37→17:01)
[2017-01-04] MEDS: LITHIUM CARBONATE 300 MG CAPSULE PO SCH (09:37)
[2017-01-04] MEDS: NICOTINE 21 MG/24 HOUR PATCH TD SCH (09:38)
[2017-01-04 16:10] VITALS: BP 113/74
[2017-01-04] MEDS: LITHIUM CARBONATE 600 MG CAPSULE PO SCH (20:19)
[2017-01-04] MEDS: MIRTAZAPINE 15 MG TABLET PO SCH (20:19)
[2017-01-05 00:59] VITALS: BP 102/67
[2017-01-05] MEDS: FERROUS SULFATE 325 MG EC TABLET PO SCH ×3 (06:46→16:04)
[2017-01-05 08:25] VITALS: BP 112/68
[2017-01-05] MEDS: NICOTINE 21 MG/24 HOUR PATCH TD SCH (08:27)
[2017-01-05] MEDS: FluPHENAZine HCL 5 MG TABLET PO SCH ×2 (08:27→16:05)
[2017-01-05] MEDS: METOPROLOL TARTRATE 50 MG TABLET PO SCH ×2 (08:27→16:04)
[2017-01-05] MEDS: BENZTROPINE MESYLATE 1 MG TABLET PO SCH ×2 (08:27→16:04)
[2017-01-05] MEDS: LITHIUM CARBONATE 300 MG CAPSULE PO SCH (08:27)
[2017-01-05 16:10] VITALS: BP 112/66
[2017-01-05] MEDS: MIRTAZAPINE 15 MG TABLET PO SCH (20:14)
[2017-01-05] MEDS: LITHIUM CARBONATE 600 MG CAPSULE PO SCH (20:15)
[2017-01-06 00:31] VITALS: BP 104/63
[2017-01-06] MEDS: FERROUS SULFATE 325 MG EC TABLET PO SCH ×3 (06:34→16:40)
[2017-01-06 08:09] VITALS: BP 112/70
[2017-01-06] MEDS: NICOTINE 21 MG/24 HOUR PATCH TD SCH (09:32)
[2017-01-06] MEDS: METOPROLOL TARTRATE 50 MG TABLET PO SCH ×2 (09:32→16:40)
[2017-01-06] MEDS: BENZTROPINE MESYLATE 1 MG TABLET PO SCH ×2 (09:32→16:40)
[2017-01-06] MEDS: LITHIUM CARBONATE 300 MG CAPSULE PO SCH (09:32)
[2017-01-06] MEDS: FluPHENAZine HCL 5 MG TABLET PO SCH ×2 (09:32→16:40)
[2017-01-06 16:15] VITALS: BP 136/88
[2017-01-06] MEDS: LITHIUM CARBONATE 600 MG CAPSULE PO SCH (20:35)
[2017-01-06] MEDS: MIRTAZAPINE 15 MG TABLET PO SCH (20:36)
[2017-01-07 00:41] VITALS: BP 113/73
[2017-01-07] MEDS: FERROUS SULFATE 325 MG EC TABLET PO SCH ×3 (07:10→16:33)
[2017-01-07 08:28] VITALS: BP 104/62
[2017-01-07] MEDS: NICOTINE 21 MG/24 HOUR PATCH TD SCH (09:53)
[2017-01-07] MEDS: BENZTROPINE MESYLATE 1 MG TABLET PO SCH ×2 (09:53→16:33)
[2017-01-07] MEDS: FluPHENAZine HCL 5 MG TABLET PO SCH ×2 (09:53→16:33)
[2017-01-07] MEDS: METOPROLOL TARTRATE 50 MG TABLET PO SCH ×2 (09:53→16:33)
[2017-01-07] MEDS: LITHIUM CARBONATE 300 MG CAPSULE PO SCH (09:53)
[2017-01-07 16:18] VITALS: BP 120/85
[2017-01-07] MEDS: LITHIUM CARBONATE 600 MG CAPSULE PO SCH (20:37)
[2017-01-07] MEDS: MIRTAZAPINE 15 MG TABLET PO SCH (20:37)
[2017-01-08 06:27] VITALS: BP 104/69
[2017-01-08] MEDS: FERROUS SULFATE 325 MG EC TABLET PO SCH ×3 (06:43→16:44)
[2017-01-08 08:14] VITALS: BP 108/72
[2017-01-08] MEDS: LITHIUM CARBONATE 300 MG CAPSULE PO SCH (09:37)
[2017-01-08] MEDS: BENZTROPINE MESYLATE 1 MG TABLET PO SCH ×2 (09:37→16:44)
[2017-01-08] MEDS: FluPHENAZine HCL 5 MG TABLET PO SCH ×2 (09:37→16:44)
[2017-01-08] MEDS: NICOTINE 21 MG/24 HOUR PATCH TD SCH (09:37)
[2017-01-08 09:44] VITALS: BP 135/75
[2017-01-08] MEDS: METOPROLOL TARTRATE 50 MG TABLET PO SCH ×2 (09:44→16:44)
[2017-01-08 16:19] VITALS: BP 125/86
[2017-01-08] MEDS: LITHIUM CARBONATE 600 MG CAPSULE PO SCH (20:36)
[2017-01-08] MEDS: MIRTAZAPINE 15 MG TABLET PO SCH (20:36)
[2017-01-09 00:48] VITALS: BP 110/77
[2017-01-09] MEDS: FERROUS SULFATE 325 MG EC TABLET PO SCH ×3 (07:12→17:12)
[2017-01-09 08:14] VITALS: BP 107/70
[2017-01-09 09:30] VITALS: BP 118/70
[2017-01-09] MEDS: METOPROLOL TARTRATE 50 MG TABLET PO SCH ×2 (09:30→17:11)
[2017-01-09] MEDS: FluPHENAZine HCL 5 MG TABLET PO SCH ×2 (09:30→17:12)
[2017-01-09] MEDS: LITHIUM CARBONATE 300 MG CAPSULE PO SCH (09:30)
[2017-01-09] MEDS: NICOTINE 21 MG/24 HOUR PATCH TD SCH (09:30)
[2017-01-09] MEDS: BENZTROPINE MESYLATE 1 MG TABLET PO SCH ×2 (09:30→17:12)
[2017-01-09] MEDS: FluPHENAZine DECANOATE 25 MG/ML IM SCH (16:16)
[2017-01-09 16:22] VITALS: BP 131/83
[2017-01-09] MEDS: MAGNESIUM HYDROXIDE SUSPENSION 30 ML UDCUP PO PRN (16:50)
[2017-01-09] MEDS: LITHIUM CARBONATE 600 MG CAPSULE PO SCH (20:46)
[2017-01-09] MEDS: MIRTAZAPINE 15 MG TABLET PO SCH (20:47)
[2017-01-10 05:50] VITALS: BP 110/69
[2017-01-10] MEDS: FERROUS SULFATE 325 MG EC TABLET PO SCH ×3 (06:16→16:37)
[2017-01-10 08:15] VITALS: BP 113/79
[2017-01-10] MEDS: BENZTROPINE MESYLATE 1 MG TABLET PO SCH ×2 (08:45→16:37)
[2017-01-10] MEDS: NICOTINE 21 MG/24 HOUR PATCH TD SCH (08:45)
[2017-01-10] MEDS: FluPHENAZine HCL 5 MG TABLET PO SCH ×2 (08:45→16:37)
[2017-01-10] MEDS: LITHIUM CARBONATE 300 MG CAPSULE PO SCH (08:45)
[2017-01-10] MEDS: METOPROLOL TARTRATE 50 MG TABLET PO SCH ×2 (08:45→16:37)
[2017-01-10 16:10] VITALS: BP 138/82
[2017-01-10] MEDS: MIRTAZAPINE 15 MG TABLET PO SCH (20:35)
[2017-01-10] MEDS: LITHIUM CARBONATE 600 MG CAPSULE PO SCH (20:35)
[2017-01-11 06:11] VITALS: BP 118/65
[2017-01-11] MEDS: FERROUS SULFATE 325 MG EC TABLET PO SCH ×3 (06:36→16:11)
[2017-01-11 08:00] VITALS: BP 106/64
[2017-01-11] MEDS: LITHIUM CARBONATE 300 MG CAPSULE PO SCH (09:42)
[2017-01-11] MEDS: NICOTINE 21 MG/24 HOUR PATCH TD SCH (09:42)
[2017-01-11] MEDS: BENZTROPINE MESYLATE 1 MG TABLET PO SCH ×2 (09:42→16:11)
[2017-01-11] MEDS: FluPHENAZine HCL 5 MG TABLET PO SCH ×2 (09:42→16:11)
[2017-01-11 09:45] VITALS: BP 117/66
[2017-01-11] MEDS: METOPROLOL TARTRATE 50 MG TABLET PO SCH ×2 (09:49→16:11)
[2017-01-11 16:12] VITALS: BP 122/72
[2017-01-11] MEDS: MIRTAZAPINE 15 MG TABLET PO SCH (20:23)
[2017-01-11] MEDS: LITHIUM CARBONATE 600 MG CAPSULE PO SCH (20:23)
[2017-01-12 06:04] VITALS: BP 108/67
[2017-01-12] MEDS: FERROUS SULFATE 325 MG EC TABLET PO SCH ×3 (06:08→16:36)
[2017-01-12 08:36] VITALS: BP 115/73
[2017-01-12] MEDS: METOPROLOL TARTRATE 50 MG TABLET PO SCH ×2 (08:53→16:36)
[2017-01-12] MEDS: FluPHENAZine HCL 5 MG TABLET PO SCH ×2 (08:53→16:35)
[2017-01-12] MEDS: LITHIUM CARBONATE 300 MG CAPSULE PO SCH (08:53)
[2017-01-12] MEDS: BENZTROPINE MESYLATE 1 MG TABLET PO SCH ×2 (08:53→16:35)
[2017-01-12] MEDS: NICOTINE 21 MG/24 HOUR PATCH TD SCH (08:54)
[2017-01-12 16:14] VITALS: BP 127/77
[2017-01-12] MEDS: MIRTAZAPINE 15 MG TABLET PO SCH (20:19)
[2017-01-12] MEDS: LITHIUM CARBONATE 600 MG CAPSULE PO SCH (20:19)
[2017-01-13 06:13] VITALS: BP 115/69
[2017-01-13] MEDS: FERROUS SULFATE 325 MG EC TABLET PO SCH ×3 (06:37→17:13)
[2017-01-13 08:14] VITALS: BP 106/63
[2017-01-13] MEDS: BENZTROPINE MESYLATE 1 MG TABLET PO SCH ×2 (08:54→17:13)
[2017-01-13] MEDS: LITHIUM CARBONATE 300 MG CAPSULE PO SCH (08:54)
[2017-01-13] MEDS: FluPHENAZine HCL 5 MG TABLET PO SCH ×2 (08:54→17:13)
[2017-01-13] MEDS: NICOTINE 21 MG/24 HOUR PATCH TD SCH (08:54)
[2017-01-13 09:35] VITALS: BP 114/76
[2017-01-13] MEDS: METOPROLOL TARTRATE 50 MG TABLET PO SCH ×2 (09:37→17:12)
[2017-01-13 16:18] VITALS: BP 120/82
[2017-01-13] MEDS: MIRTAZAPINE 15 MG TABLET PO SCH (20:08)
[2017-01-13] MEDS: LITHIUM CARBONATE 600 MG CAPSULE PO SCH (20:08)
[2017-01-14 06:09] VITALS: BP 117/71
[2017-01-14] MEDS: FERROUS SULFATE 325 MG EC TABLET PO SCH ×3 (06:50→16:39)
[2017-01-14 08:09] VITALS: BP 140/82
[2017-01-14] MEDS: FluPHENAZine HCL 5 MG TABLET PO SCH ×2 (08:46→16:39)
[2017-01-14] MEDS: BENZTROPINE MESYLATE 1 MG TABLET PO SCH ×2 (08:46→16:39)
[2017-01-14] MEDS: METOPROLOL TARTRATE 50 MG TABLET PO SCH ×2 (08:46→16:39)
[2017-01-14] MEDS: LITHIUM CARBONATE 300 MG CAPSULE PO SCH (08:46)
[2017-01-14] MEDS: NICOTINE 21 MG/24 HOUR PATCH TD SCH (08:50)
[2017-01-14] MEDS: MAGNESIUM HYDROXIDE SUSPENSION 30 ML UDCUP PO PRN (10:50)
[2017-01-14 16:53] VITALS: BP 137/93
[2017-01-14] MEDS: MIRTAZAPINE 15 MG TABLET PO SCH (20:40)
[2017-01-14] MEDS: LITHIUM CARBONATE 600 MG CAPSULE PO SCH (20:40)
[2017-01-15 06:20] VITALS: BP 107/66
[2017-01-15] MEDS: FERROUS SULFATE 325 MG EC TABLET PO SCH ×3 (06:54→16:36)
[2017-01-15 08:09] VITALS: BP 138/78
[2017-01-15] MEDS: FluPHENAZine HCL 5 MG TABLET PO SCH ×2 (08:53→16:36)
[2017-01-15] MEDS: METOPROLOL TARTRATE 50 MG TABLET PO SCH ×2 (08:53→16:36)
[2017-01-15] MEDS: LITHIUM CARBONATE 300 MG CAPSULE PO SCH (08:54)
[2017-01-15] MEDS: BENZTROPINE MESYLATE 1 MG TABLET PO SCH ×2 (08:54→16:36)
[2017-01-15] MEDS: NICOTINE 21 MG/24 HOUR PATCH TD SCH (08:54)
[2017-01-15 16:15] VITALS: BP 110/73
[2017-01-15] MEDS: LITHIUM CARBONATE 600 MG CAPSULE PO SCH (20:43)
[2017-01-15] MEDS: MIRTAZAPINE 15 MG TABLET PO SCH (20:43)
[2017-01-16 06:18] VITALS: BP 110/65
[2017-01-16] MEDS: FERROUS SULFATE 325 MG EC TABLET PO SCH ×3 (06:39→16:42)
[2017-01-16 08:10] VITALS: BP 119/87
[2017-01-16] MEDS: NICOTINE 21 MG/24 HOUR PATCH TD SCH (08:39)
[2017-01-16] MEDS: METOPROLOL TARTRATE 50 MG TABLET PO SCH ×2 (08:39→16:42)
[2017-01-16] MEDS: FluPHENAZine HCL 5 MG TABLET PO SCH ×2 (08:40→16:41)
[2017-01-16] MEDS: BENZTROPINE MESYLATE 1 MG TABLET PO SCH ×2 (08:40→16:41)
[2017-01-16] MEDS: LITHIUM CARBONATE 300 MG CAPSULE PO SCH (08:40)
[2017-01-16 16:18] VITALS: BP 116/95
[2017-01-16 19:03] VITALS: BP 117/76
[2017-01-16] MEDS: IBUPROFEN 400 MG TABLET PO PRN (19:03)
[2017-01-16] MEDS: MIRTAZAPINE 15 MG TABLET PO SCH (20:45)
[2017-01-16] MEDS: LITHIUM CARBONATE 600 MG CAPSULE PO SCH (20:45)
[2017-01-17 00:10] VITALS: BP 112/68
[2017-01-17] MEDS: FERROUS SULFATE 325 MG EC TABLET PO SCH ×3 (06:52→17:24)
[2017-01-17] MEDS: FluPHENAZine HCL 5 MG TABLET PO SCH ×2 (08:06→18:32)
[2017-01-17] MEDS: LITHIUM CARBONATE 300 MG CAPSULE PO SCH (08:06)
[2017-01-17] MEDS: BENZTROPINE MESYLATE 1 MG TABLET PO SCH ×2 (08:06→17:24)
[2017-01-17] MEDS: METOPROLOL TARTRATE 50 MG TABLET PO SCH ×2 (08:06→18:07)
[2017-01-17] MEDS: NICOTINE 21 MG/24 HOUR PATCH TD SCH (08:07)
[2017-01-17 08:10] VITALS: BP 128/85
[2017-01-17] MEDS: LORazepam 2 MG TABLET PO PRN (10:45)
[2017-01-17 16:09] VITALS: BP 129/86
[2017-01-17] MEDS: MIRTAZAPINE 15 MG TABLET PO SCH (20:49)
[2017-01-17] MEDS: LITHIUM CARBONATE 600 MG CAPSULE PO SCH (20:49)
[2017-01-18] VITALS: BP 127/71
[2017-01-18] MEDS: FERROUS SULFATE 325 MG EC TABLET PO SCH ×3 (06:47→16:39)
[2017-01-18] MEDS: FluPHENAZine HCL 5 MG TABLET PO SCH ×2 (08:09→16:39)
[2017-01-18] MEDS: NICOTINE 21 MG/24 HOUR PATCH TD SCH (08:09)
[2017-01-18] MEDS: LITHIUM CARBONATE 300 MG CAPSULE PO SCH (08:09)
[2017-01-18] MEDS: BENZTROPINE MESYLATE 1 MG TABLET PO SCH ×2 (08:09→16:39)
[2017-01-18] MEDS: METOPROLOL TARTRATE 50 MG TABLET PO SCH ×2 (08:09→16:40)
[2017-01-18 08:10] VITALS: BP 110/85
[2017-01-18] MEDS: IBUPROFEN 400 MG TABLET PO PRN (08:10)
[2017-01-18] MEDS: MAGNESIUM HYDROXIDE SUSPENSION 30 ML UDCUP PO PRN (15:54)
[2017-01-18 16:07] VITALS: BP 118/85
[2017-01-18] MEDS: MIRTAZAPINE 15 MG TABLET PO SCH (20:34)
[2017-01-18] MEDS: LITHIUM CARBONATE 600 MG CAPSULE PO SCH (20:34)
[2017-01-18] MEDS: ZOLPIDEM TARTRATE 10 MG TABLET PO PRN (20:56)
[2017-01-19 00:43] VITALS: BP 111/63
[2017-01-19] MEDS: FERROUS SULFATE 325 MG EC TABLET PO SCH ×3 (06:43→16:38)
[2017-01-19 08:10] VITALS: BP 121/59
[2017-01-19] MEDS: LITHIUM CARBONATE 300 MG CAPSULE PO SCH (09:05)
[2017-01-19] MEDS: BENZTROPINE MESYLATE 1 MG TABLET PO SCH ×2 (09:05→16:38)
[2017-01-19] MEDS: FluPHENAZine HCL 5 MG TABLET PO SCH ×2 (09:05→16:38)
[2017-01-19] MEDS: NICOTINE 21 MG/24 HOUR PATCH TD SCH (09:05)
[2017-01-19 09:10] VITALS: BP 114/66
[2017-01-19] MEDS: METOPROLOL TARTRATE 50 MG TABLET PO SCH ×2 (09:11→16:38)
[2017-01-19 16:16] VITALS: BP 130/86
[2017-01-19] MEDS: MIRTAZAPINE 15 MG TABLET PO SCH (20:46)
[2017-01-19] MEDS: LITHIUM CARBONATE 600 MG CAPSULE PO SCH (20:46)
[2017-01-20 00:01] VITALS: BP 124/68
[2017-01-20] MEDS: FERROUS SULFATE 325 MG EC TABLET PO SCH ×3 (06:53→16:39)
[2017-01-20 08:08] VITALS: BP 135/87
[2017-01-20] MEDS: FluPHENAZine HCL 5 MG TABLET PO SCH ×2 (08:18→16:39)
[2017-01-20] MEDS: NICOTINE 21 MG/24 HOUR PATCH TD SCH (08:18)
[2017-01-20] MEDS: LITHIUM CARBONATE 300 MG CAPSULE PO SCH (08:18)
[2017-01-20] MEDS: BENZTROPINE MESYLATE 1 MG TABLET PO SCH ×2 (08:18→16:39)
[2017-01-20] MEDS: METOPROLOL TARTRATE 50 MG TABLET PO SCH ×2 (08:18→16:39)
[2017-01-20 16:15] VITALS: BP 133/85
[2017-01-20] MEDS: MIRTAZAPINE 15 MG TABLET PO SCH (20:41)
[2017-01-20] MEDS: LITHIUM CARBONATE 600 MG CAPSULE PO SCH (20:41)
[2017-01-21 00:58] VITALS: BP 101/60
[2017-01-21] MEDS: FERROUS SULFATE 325 MG EC TABLET PO SCH ×3 (07:18→16:34)
[2017-01-21 08:10] VITALS: BP 100/67
[2017-01-21] MEDS: FluPHENAZine HCL 5 MG TABLET PO SCH ×2 (08:39→16:34)
[2017-01-21] MEDS: BENZTROPINE MESYLATE 1 MG TABLET PO SCH ×2 (08:39→16:34)
[2017-01-21] MEDS: LITHIUM CARBONATE 300 MG CAPSULE PO SCH (08:40)
[2017-01-21] MEDS: NICOTINE 21 MG/24 HOUR PATCH TD SCH (08:40)
[2017-01-21 08:45] VITALS: BP 117/85
[2017-01-21] MEDS: METOPROLOL TARTRATE 50 MG TABLET PO SCH ×2 (08:46→16:34)
[2017-01-21] MEDS: MAGNESIUM HYDROXIDE SUSPENSION 30 ML UDCUP PO PRN (11:56)
[2017-01-21] MEDS: LORazepam 2 MG TABLET PO PRN ×2 (12:26→19:17)
[2017-01-21 16:10] VITALS: BP 115/79
[2017-01-21] MEDS: LITHIUM CARBONATE 600 MG CAPSULE PO SCH (20:35)
[2017-01-21] MEDS: MIRTAZAPINE 15 MG TABLET PO SCH (20:35)
[2017-01-22 07:24] VITALS: BP 109/71
[2017-01-22] MEDS: FERROUS SULFATE 325 MG EC TABLET PO SCH ×3 (07:25→16:44)
[2017-01-22 08:08] VITALS: BP 136/86
[2017-01-22] MEDS: LITHIUM CARBONATE 300 MG CAPSULE PO SCH (08:38)
[2017-01-22] MEDS: BENZTROPINE MESYLATE 1 MG TABLET PO SCH ×2 (08:38→16:44)
[2017-01-22] MEDS: FluPHENAZine HCL 5 MG TABLET PO SCH ×2 (08:38→16:44)
[2017-01-22] MEDS: METOPROLOL TARTRATE 50 MG TABLET PO SCH ×2 (08:38→16:44)
[2017-01-22] MEDS: NICOTINE 21 MG/24 HOUR PATCH TD SCH (08:38)
[2017-01-22 16:14] VITALS: BP 124/79
[2017-01-22] MEDS: MIRTAZAPINE 15 MG TABLET PO SCH (20:33)
[2017-01-22] MEDS: LITHIUM CARBONATE 600 MG CAPSULE PO SCH (20:33)
[2017-01-23 00:19] VITALS: BP 102/60
[2017-01-23] MEDS: FERROUS SULFATE 325 MG EC TABLET PO SCH ×3 (06:10→16:33)
[2017-01-23 08:19] VITALS: BP 103/71
[2017-01-23] MEDS: FluPHENAZine DECANOATE 25 MG/ML IM SCH (08:42)
[2017-01-23 08:45] VITALS: BP 123/86
[2017-01-23] MEDS: LITHIUM CARBONATE 300 MG CAPSULE PO SCH (08:47)
[2017-01-23] MEDS: FluPHENAZine HCL 5 MG TABLET PO SCH ×2 (08:47→16:33)
[2017-01-23] MEDS: NICOTINE 21 MG/24 HOUR PATCH TD SCH (08:47)
[2017-01-23] MEDS: METOPROLOL TARTRATE 50 MG TABLET PO SCH ×2 (08:47→16:33)
[2017-01-23] MEDS: BENZTROPINE MESYLATE 1 MG TABLET PO SCH ×2 (08:47→16:33)
[2017-01-23 16:11] VITALS: BP 131/65
[2017-01-23 19:45] VITALS: BP 118/75
[2017-01-23] MEDS: IBUPROFEN 400 MG TABLET PO PRN (19:48)
[2017-01-23] MEDS: LITHIUM CARBONATE 600 MG CAPSULE PO SCH (20:34)
[2017-01-23] MEDS: MIRTAZAPINE 15 MG TABLET PO SCH (20:34)
[2017-01-24 05:03] VITALS: BP 107/63
[2017-01-24] MEDS: FERROUS SULFATE 325 MG EC TABLET PO SCH ×3 (06:25→17:05)
[2017-01-24 08:08] VITALS: BP 123/80
[2017-01-24] MEDS: BENZTROPINE MESYLATE 1 MG TABLET PO SCH ×2 (08:53→17:05)
[2017-01-24] MEDS: NICOTINE 21 MG/24 HOUR PATCH TD SCH (08:53)
[2017-01-24] MEDS: LITHIUM CARBONATE 300 MG CAPSULE PO SCH (08:53)
[2017-01-24] MEDS: METOPROLOL TARTRATE 50 MG TABLET PO SCH ×2 (08:53→17:05)
[2017-01-24] MEDS: FluPHENAZine HCL 5 MG TABLET PO SCH ×2 (08:53→17:05)
[2017-01-24 08:59] VITALS: BP 117/63
[2017-01-24 16:15] VITALS: BP 123/80
[2017-01-24] MEDS: LORazepam 2 MG TABLET PO PRN (18:50)
[2017-01-24] MEDS: ZOLPIDEM TARTRATE 10 MG TABLET PO PRN (20:10)
[2017-01-24] MEDS: LITHIUM CARBONATE 600 MG CAPSULE PO SCH (20:10)
[2017-01-24] MEDS: MIRTAZAPINE 15 MG TABLET PO SCH (20:10)
[2017-01-24] MEDS ORDERED: BENZ1TAB10 PO (20:41)
[2017-01-24] MEDS ORDERED: ZOLP10 PO (20:41)
[2017-01-24] MEDS ORDERED: MIRT15 PO (20:41)
[2017-01-24] MEDS ORDERED: LORA2TAB2 PO (20:41)
== END 2017-01-24 21:00 | DRG 885 ==
LOC: B2X 15:13
PROVIDERS: ADMIT Psychiatry & Neurology Psychiatry; ATTEND Psychiatry & Neurology Psychiatry
DX: F20.0 Paranoid schizophrenia (principal); I10 Essential (primary) hypertension; D64.9 Anemia, unspecified; E78.5 Hyperlipidemia, unspecified; F17.210 Nicotine dependence, cigarettes, uncomplicated; Z88.2 Allergy status to sulfonamides; Z90.49 Acquired absence of other specified parts of digestive tract; Z88.5 Allergy status to narcotic agent; Z91.013 Allergy to seafood; Z71.6 Tobacco abuse counseling; Z28.21 Immunization not carried out because of patient refusal
CPT/HCPCS: 83036; 84443; 87081; 90471; J2680

== ENCOUNTER 2017-09-20 21:06 | Emergency (ER) | payer MEDICARE, OTHER ==
[~2017-09-20] VITALS: Ht 172.7 cm; Wt 81.8 kg
[~2017-09-20 21:06] MED LIST changes: +BENZ1TAB10 PO; +FERR-82 PO; -FERR325T40 PO; -FLUD25I IM; +LORA2TAB2 PO; +MIRT15 PO; +ZOLP10TA7 PO
[2017-09-20 21:40] LABS: BASOPHILS % (AUTO) 0.4 % (0.0-2.0); EOSINOPHILS % (AUTO) 1.8 % (1.0-6.0); HEMATOCRIT 40.9 % (41-53); HEMOGLOBIN 14.3 g/dL (13.5-17.5); MEAN CORPUSCULAR HEMOGLOBIN 30.6 pg (26.0-34.0); MEAN CORPUSCULAR VOLUME 88 fL (80-100); MONOCYTES # (AUTO) 0.5 K/uL (0.1-1.0); MONOCYTES % (AUTO) 4.8 % (2.0-9.0); NEUTROPHILS # (AUTO) 7.4 K/uL (1.8-7.7); PLATELET COUNT (AUTO) 219 K/uL (150-450); RED BLOOD CELL COUNT(AUTO) 4.67 MIL/uL (4.50-5.90); WHITE BLOOD COUNT (AUTO) 10.1 K/uL (4.5-11.0)
[2017-09-20] MEDS ORDERED: FLUD25I SQ (21:40)
[2017-09-20] MEDS ORDERED: OLAN10TA3 PO ×2 (21:40)
[2017-09-20] MEDS ORDERED: SIME120L PO (21:40)
[2017-09-20] MEDS ORDERED: LORA10I IV (21:40)
[2017-09-20] MEDS ORDERED: DOCU250C91 PO (21:40)
[2017-09-20] MEDS ORDERED: LORA1TAB3 PO (21:40)
[2017-09-20 21:44] LABS: ANION GAP 8 mmol/L (8-16); CALCIUM, TOTAL 9.8 mg/dL (8.8-10.5); CARBON DIOXIDE 26 mmol/L (22-29); CHLORIDE 104 mmol/L (98-107); CREATININE 0.88 mg/dL (0.60-1.30); GLOMERULAR FILTR. RATE CALC > 60 mL/min (>60); POTASSIUM 3.6 mmol/L (3.5-5.1); SODIUM SERUM 138 mmol/L (136-145); UREA NITROGEN, BLOOD 12 mg/dL (7-18)
[2017-09-20 21:50] LABS: ALANINE AMINOTRANSFERASE 25 U/L (12-78); ALBUMIN 3.9 g/dL (3.4-5.0); ASPARTATE AMINOTRANSFERASE 15 U/L (15-37); BILIRUBIN,TOTAL 0.4 mg/dL (0.1-1.0); TOTAL PROTEIN, SERUM 7.3 g/dL (6.4-8.2)
[2017-09-20] MEDS ORDERED: OLANZapine 5 MG TABLET PO ONE (22:45)
[2017-09-20 22:46] VITALS: BP 124/81
== END 2017-09-21 01:10 | disposition home or self-care (01) ==
LOC: EMS 21:11
DX: F20.9 Schizophrenia, unspecified (principal); R45.851 Suicidal ideations; E78.00 Pure hypercholesterolemia, unspecified; I10 Essential (primary) hypertension; F17.210 Nicotine dependence, cigarettes, uncomplicated; Z88.2 Allergy status to sulfonamides; Z88.5 Allergy status to narcotic agent; Z90.49 Acquired absence of other specified parts of digestive tract
CPT/HCPCS: 36415; 80053; 80307; 85025; 99284; 99406; G0480

== ENCOUNTER 2025-02-09 13:23 | Inpatient (IN) | payer MEDICARE, MEDICAID ==
[~2025-02-09] VITALS: Ht 172.7 cm; Wt 72.6 kg
[~2025-02-09 13:23] MED LIST changes: +BENZ-247 PO; -BENZ1TAB10 PO; -FLUP5 PO; +FLUP5TAB31 PO; -LITH600 PO; +LITH600C5 PO; -LORA2TAB2 PO; -METO50 PO; -MIRT15 PO; +OLAN10TA74 PO; -ZOLP10TA7 PO
[2025-02-09 14:34] LABS: BASOPHILS % (AUTO) 0.1 % (0.0-2.0); EOSINOPHILS % (AUTO) 2.1 % (1.0-6.0); HEMOGLOBIN 11.4 g/dL (13.5-17.5); LYMPHOCYTES # (AUTO) 1.2 K/uL (1.0-4.8); LYMPHOCYTES % (AUTO) 23.3 % (22.0-44.0); MEAN CORPUSCULAR HEMOGLOBIN 29.7 pg (26.0-34.0); MEAN CORPUSCULAR HGB CONC 33.6 G/dL (31.0-37.0); MEAN CORPUSCULAR VOLUME 88 fL (80-100); MONOCYTES # (AUTO) 0.4 K/uL (0.1-1.0); MONOCYTES % (AUTO) 6.9 % (2.0-9.0); NEUTROPHILS # (AUTO) 3.5 K/uL (1.8-7.7); NEUTROPHILS % (AUTO) 67.6 % (40.0-70.0); PLATELET COUNT (AUTO) 163 K/uL (150-450); RED BLOOD CELL COUNT(AUTO) 3.85 MIL/uL (4.50-5.90); RED CELL DISTRIBUTION WIDTH 13.3 % (11.5-14.5); WHITE BLOOD COUNT (AUTO) 5.2 K/uL (4.5-11.0)
[2025-02-09 14:44] LABS: ANION GAP 8 mmol/L (8-16); CALCIUM, TOTAL 9.3 mg/dL (8.8-10.5); CARBON DIOXIDE 28 mmol/L (22-29); CHLORIDE 103 mmol/L (98-107); CREATININE 1.24 mg/dL (0.60-1.30); GLOMERULAR FILTR. RATE CALC 59 mL/min (>60); GLUCOSE,RANDOM 94 mg/dL (70-110); POTASSIUM 3.8 mmol/L (3.5-5.1); SODIUM SERUM 139 mmol/L (136-145); UREA NITROGEN, BLOOD 22 mg/dL (7-18)
[2025-02-09 14:50] LABS: COVID AG,FIA SOURCE NPH
[2025-02-09 15:06] LABS: ALCOHOL, BLOOD (SERUM) < 3 mg/dL (0-10); LITHIUM < 0.20 mmol/L (0.60-1.20)
[2025-02-09 15:07] LABS: SARS-COV2 (COVID) ANTIGEN,FIA Negative (Negative)
[2025-02-09 16:09] LABS: AMPHET/METH SCREEN,URINE NEGATIVE (NEGATIVE); BARBITURATE SCREEN, URINE NEGATIVE (NEGATIVE); BENZODIAZEPINES SCREEN,URINE NEGATIVE (NEGATIVE); CANNABINOID SCREEN,URINE NEGATIVE (NEGATIVE); COCAINE SCREEN,URINE NEGATIVE (NEGATIVE); METHADONE SCREEN, URINE NEGATIVE (NEGATIVE); OPIATE SCREEN,URINE NEGATIVE (NEGATIVE); PHENCYCLIDINE SCREEN,URINE NEGATIVE (NEGATIVE)
[2025-02-09 16:11] LABS: ALCOHOL, URINE DRUG SCREEN NEGATIVE (NEGATIVE); APPEARANCE,URINE CLEAR (CLEAR); BILIRUBIN,URINE NEGATIVE (NEGATIVE); COLOR,URINE COLORLESS (YELLOW); GLUCOSE, URINE (UA) NEGATIVE (NEGATIVE); KETONES,URINE NEGATIVE (NEGATIVE); LEUKOCYTE ESTERASE ,URINE NEGATIVE (NEGATIVE); NITRATE,URINE NEGATIVE (NEGATIVE); OCCULT BLOOD,URINE NEGATIVE (NEGATIVE); PROTEIN,URINE NEGATIVE (NEGATIVE); SPECIFIC GRAVITIY, URINE 1.006 (1.003-1.030); UROBILINOGEN,URINE <=1.0 mg/dL (<=1.0)
[2025-02-09 17:30] VITALS: O2SAT 98
[2025-02-09] MEDS: LORazepam 2 MG TABLET PO ONE (19:14)
[2025-02-09 20:20] VITALS: BP 137/82; PULSE 81; RESP 18; TEMP 97.4; O2SAT 100
[2025-02-09] MEDS: ZOLPIDEM TARTRATE 10 MG TABLET PO PRN (20:51)
[2025-02-10 08:39] VITALS: BP 125/88; PULSE 86; RESP 16; TEMP 98.1; O2SAT 97
[2025-02-10] MEDS: LORazepam 2 MG TABLET PO PRN (09:04)
[2025-02-10] MEDS: HALOPERIDOL 5 MG TABLET PO PRN (09:05)
[2025-02-10] MEDS: LITHIUM CARBONATE 300 MG CAPSULE PO SCH (10:19)
[2025-02-10] MEDS: BENZTROPINE MESYLATE 1 MG TABLET PO SCH (10:19)
[2025-02-10] MEDS: FluPHENAZine HCL 10 MG TABLET PO SCH (10:20)
[2025-02-10] MEDS: OLANZapine 10 MG TABLET PO SCH (10:20)
[2025-02-10 20:18] VITALS: BP 138/84; PULSE 78; RESP 19; TEMP 98.1; O2SAT 99
[2025-02-10] MEDS: LITHIUM CARBONATE 600 MG CAPSULE PO SCH (20:32)
[2025-02-11 11:37] VITALS: BP 133/85; PULSE 80; RESP 16; TEMP 97.4; O2SAT 99
[2025-02-11 20:41] VITALS: BP 146/90; PULSE 83; RESP 18; TEMP 97.7; O2SAT 96
[2025-02-12 09:36] VITALS: BP 129/87; PULSE 97; RESP 16; TEMP 96.8; O2SAT 98
[2025-02-12 20:18] VITALS: BP 121/56; PULSE 76; RESP 15; TEMP 98.6; O2SAT 98
[2025-02-13 09:14] LABS: ANION GAP 6 mmol/L (8-16); CALCIUM, TOTAL 9.9 mg/dL (8.8-10.5); CARBON DIOXIDE 31 mmol/L (22-29); CHLORIDE 103 mmol/L (98-107); CREATININE 1.19 mg/dL (0.60-1.30); GLOMERULAR FILTR. RATE CALC > 60 mL/min (>60); GLUCOSE,RANDOM 140 mg/dL (70-110); POTASSIUM 4.4 mmol/L (3.5-5.1); SODIUM SERUM 140 mmol/L (136-145); UREA NITROGEN, BLOOD 23 mg/dL (7-18)
[2025-02-13 10:45] VITALS: BP 116/69; PULSE 100; RESP 16; TEMP 97.4; O2SAT 97
[2025-02-13 20:11] VITALS: BP 114/65; PULSE 79; RESP 18; TEMP 99; O2SAT 96
[2025-02-14 11:12] VITALS: BP 125/86; PULSE 77; RESP 18; TEMP 97; O2SAT 99
[2025-02-14 20:33] VITALS: BP 134/82; PULSE 85; RESP 16; TEMP 98.3; O2SAT 97
[2025-02-15 08:18] VITALS: BP 123/79; PULSE 83; RESP 18; TEMP 98.1; O2SAT 100
[2025-02-15] MEDS ORDERED: FLUP10TA28 PO (12:55)
== END 2025-02-15 18:54 | DRG 885 ==
LOC: EMS 13:23 → B2X 18:10
PROVIDERS: ADMIT Psychiatry & Neurology Psychiatry; ATTEND Psychiatry & Neurology Psychiatry
PROC: GZHZZZZ Group Psychotherapy (ICD-10-PCS; principal; 2025-02-10)
PROC: GZ52ZZZ Individual Psychotherapy, Cognitive (ICD-10-PCS; 2025-02-11)
DX: F25.0 Schizoaffective disorder, bipolar type (principal); I10 Essential (primary) hypertension; J45.909 Unspecified asthma, uncomplicated; F17.210 Nicotine dependence, cigarettes, uncomplicated; Z20.822 Contact with and (suspected) exposure to COVID-19; E78.00 Pure hypercholesterolemia, unspecified; D64.9 Anemia, unspecified; Z88.8 Allergy status to other drugs, medicaments and biological substances; Z88.2 Allergy status to sulfonamides; Z90.49 Acquired absence of other specified parts of digestive tract; Z88.5 Allergy status to narcotic agent; Z91.013 Allergy to seafood; Z79.899 Other long term (current) drug therapy
CPT/HCPCS: 80048; 80178; 80307; 81003; 85025; 87081; 99285; G0480